=== PATIENT | female | born 1990 | race Caucasian/White ===

== ENCOUNTER 2020-02-17 10:03 | Outpatient (CLI) | payer BC, OTHER ==
[2020-02-18 12:44] LABS: SARS-CoV-2 MS2 Positive; SARS-CoV-2 N Gene Negative; SARS-CoV-2 S Gene Negative; SARS-CoV-2 by NAA Not Detected (NotDetected); SARS-CoV-2 orf1ab Negative
== END 2020-02-17 10:04 | disposition home or self-care (01) ==
LOC: LABSCS 10:03
PROVIDERS: ATTEND Student in an Organized Health Care Education/Training Program
DX: Z01.812 Encounter for preprocedural laboratory examination (principal); Z11.59 Encounter for screening for other viral diseases
CPT/HCPCS: 87635; U0003

== ENCOUNTER 2020-09-04 20:14 | Emergency (ER) | payer BC ==
[2020-09-04] MEDS ORDERED: Dexamethasone 4 mg/ml Vial ONE (21:40)
[2020-09-04] MEDS ORDERED: Ketorolac Tromethamine 30 MG/ML VIAL ONE (21:41)
[2020-09-04] MEDS ORDERED: cefTRIAXone\\ROCEPHIN 1 GM VIAL ONE (21:41)
== END 2020-09-04 23:20 | disposition home or self-care (01) ==
LOC: ERS 20:14
DX: J36 Peritonsillar abscess (principal); Z79.899 Other long term (current) drug therapy
CPT/HCPCS: 96365; 96375; J0696; J1100; J1885

== ENCOUNTER 2022-06-12 08:28 | Outpatient (CLI) | payer BC ==
[2022-06-12 11:03] LABS: BHCG - Serum Negative (NEGATIVE); Pregs Control Background? CLEAR/WHITE (CLR/WHITE); Pregs Control Bar Appear? YES (CONTROL BAR)
== END 2022-06-12 08:29 | disposition home or self-care (01) ==
LOC: LABBT 08:28
PROVIDERS: ATTEND Student in an Organized Health Care Education/Training Program
DX: Z01.812 Encounter for preprocedural laboratory examination (principal); J32.9 Chronic sinusitis, unspecified; J34.2 Deviated nasal septum; J34.3 Hypertrophy of nasal turbinates; J34.89 Other specified disorders of nose and nasal sinuses; R09.81 Nasal congestion; J33.9 Nasal polyp, unspecified; J35.1 Hypertrophy of tonsils; Z87.09 Personal history of other diseases of the respiratory system
CPT/HCPCS: 84703; 85014